=== PATIENT | male | born 1975 | race Caucasian/White ===

== ENCOUNTER 2018-08-28 14:30 | Emergency (ER) | payer OTHER ==
[~2018-08-28] VITALS: Ht 180.3 cm; Wt 185.1 kg
[2018-08-28 14:32] VITALS: Ht 180.3 cm; Wt 185.1 kg
[2018-08-28 18:12] VITALS: BP 110/60
== END 2018-08-28 16:12 | disposition home or self-care (01) ==
LOC: ED 14:30
DX: J01.90 Acute sinusitis, unspecified (principal); H60.91 Unspecified otitis externa, right ear; H10.9 Unspecified conjunctivitis
CPT/HCPCS: J3010